=== PATIENT | male | born 1975 | race African-American/Black ===

== ENCOUNTER → 2016-05-23 | Day surgery (SDC) | payer BC ==
[~2016-05-23] MED LIST: ALLERGY10 M2 PO; COQ1050 MG PO; FISH OIL500 M1 PO; FLONASE 0.05% N16 G1; MULTI-VITAMIN1 EAC1 PO; PENTASA250 MG PO; PROBIOTIC DIGE1 EACH PO; TUMERIC PO; VITAMIN C PO
--- NOTE | ~2016-05-23 | OR ---
Unit #: [id number] #: [id number] Patient: SWEETIE JORGENSEN [id number] [address] [place], [place] [address] [id number] MR#: [id number] NAME: SWEETIE JORGENSEN. ROOM: Date of Procedure: 05/23/2016 Admission Date: 05/23/2016 Surgeon: Keo Braga M.D. : 1975 Attending Physician: Keo Braga M.D. Referring Physician: Keo Braga M.D. Primary Care Physician: Amber Edwards M.D. OPERATIVE REPORT PREOPERATIVE DIAGNOSIS Enlarging lipoma, left posterior shoulder. POSTOPERATIVE DIAGNOSIS Enlarging lipoma, left posterior shoulder. PROCEDURE PERFORMED Excision of enlarging lipoma, left posterior shoulder 6 cm with layered closure. ANESTHESIA General LMA anesthesia with 0.5% Marcaine plain local anesthesia. FINDINGS The area was excised and was consistent with a lipoma. SPECIMENS Sent to pathology. COMPLICATIONS None apparent. CONDITION The patient tolerated the procedure well. INDICATIONS FOR PROCEDURE The patient is a 40-year-old black male, who presents at this time with enlarging lipoma of the left posterior shoulder. He presents at this time for excision for pathologic diagnosis and treatment. DESCRIPTION OF PROCEDURE After obtaining informed consent as well as receiving preoperative antibiotics, the patient was brought to the operating room and after adequate general LMA anesthesia was obtained, he was placed in a right lateral decubitus position with an axillary roll in place and all pressure points carefully padded and all extremities manipulated very carefully. A beanbag was used to carefully hold him in place and securely. His left shoulder was prepped and draped in a sterile fashion. An incision was made with a knife and taken down through the subdermal tissues, subcutaneous tissues with electrocautery down to the level of the lesion. The lesion was dissected free circumferentially with electrocautery with good hemostasis. It extended down onto the muscular fascia. It was sent Unit #: [id number] #: [id number] Patient: SWEETIE JORGENSEN to pathology. The wound was irrigated and hemostasis was obtained with Bovie, infiltrated with 0.5% Marcaine plain local anesthesia, and the deep tissues were closed with interrupted 3-0 Vicryl sutures taking a bite of the base of the wound to obliterate any space. The skin was closed with interrupted 3-0 nylon vertical mattress sutures as there was an area of tension. A dry dressing was applied followed by a Tegaderm dressing. Needle counts, sponge counts, and instrument counts were all correct as reported by the scrub nurse x2. The patient went from the operating room to the recovery room in stable condition. Dictated by... Madhu Galvin/kev TD: 05/23/2016 08:50 JOB #: [id number] CC: [facility] OPERATIVE REPORT Page 1 of 1 X Keo Braga MD X PROCEDURE OPERATIVE NOTE
== END | disposition home or self-care (01) ==
LOC: CSUR 05:55
DX: D17.39 Benign lipomatous neoplasm of skin and subcutaneous tissue of other sites (principal); Z90.81 Acquired absence of spleen; Z90.49 Acquired absence of other specified parts of digestive tract
CPT/HCPCS: 88304; J0690; J1100; J2250; J2405; J3010